=== PATIENT | male | born 1945 | race Caucasian/White ===

== ENCOUNTER 2016-12-18 06:39 | Inpatient (IN) | payer MEDICARE ==
[2016-12-18] MEDS ORDERED: ONDANSETRON HCL 4 MG/2 ML VIAL ONE (07:05)
[2016-12-18] MEDS ORDERED: HYDROmorphone HCL 1 MG/ML SYR ONE (07:05)
[2016-12-18 07:15] LABS: BASOPHILS 0.1 % (0.0-2.0); HEMATOCRIT 45.9 % (42.0-54.0); HEMOGLOBIN 15.8 g/dL (14.0-18.0); LYMPHOCYTES# 0.8 X 10^3uL (0.8-3.8); MEAN CELL VOLUME 96.2 fL (84.0-102.0); MEAN CORPUS. HGB CONCENTRATION 34.3 g/dL (32.0-36.0); MEAN PLATELET VOLUME 8.7 fL (7.4-10.4); MONOCYTES 13.2 % (2.0-10.0); MONOCYTES# 1.2 X 10^3uL (0.2-1.0); NEUTROPHILS 77.7 % (54.0-75.0); NEUTROPHILS# 7.3 X 10^3uL (2.6-6.7); RED BLOOD COUNT 4.77 X 10^6uL (4.20-6.10); RED CELL DISTRIBUTION WIDTH 12.4 % (11.5-14.5); WHITE BLOOD COUNT 9.3 X 10^3uL (3.9-10.7)
[2016-12-18 07:26] LABS: A/G RATIO 1.4; ALBUMIN 4.2 g/dL (3.5-5.0); BILIRUBIN, TOTAL 2.1 mg/dL (0.2-1.3); CALCIUM 9.3 mg/dL (8.4-10.2); CREATININE 1.3 mg/dL (0.7-1.3); TOTAL PROTEIN 7.1 g/dL (6.3-8.2)
--- NOTE | 2016-12-18 08:25 | CT REPORT ---
EXAM: CT abdomen and pelvis. DATE: December 18, 2016. INDICATION: Nausea and vomiting for 5 days. PAST medical history: Colon cancer status post resection, renal carcinoma status post resection, pros adkins cancer, bladder cancer. TECHNIQUE: CT the abdomen and pelvis was performed after the uneventful administration of 100 mL of I sovue-300. FINDINGS: Lung bases are hypoventilated. No confluent infiltrate. No pneumothorax or pleural effusion. There is a small amount of perihepatic ascites. The liver appears unremarkable. The gallbladder demon strates no stones or evidence of cholecystitis. The biliary ducts are not dilated. The spleen is unre markable. There are no adrenal masses. The right kidney is surgically absent. The left kidney enhances normally . Incidental note is made of a subcentimeter metallic foreign body within the parenchyma of the mid b donn. There is normal contrast excretion. The abdominal aorta and IVC are unremarkable. No aneurysm. No periaortic mass or adenopathy. Stomach is distended and predominantly fluid-filled. There is diffuse small bowel distention which is fluid-filled and multiple air-fluid levels. Colon is decompressed. The transition point appears to b e in the right midabdomen in the region of the small bowel to colon surgical anastomosis. The ascendi ng colon and cecum are absent consistent with surgical resection. No free air or pneumatosis. There i s diverticulosis of the sigmoid colon without inflammatory combination. Pelvis demonstrates no free fluid. Prostate is not visualized. Postoperative changes are noted at the base of the bladder and prostate bed. The unenhanced bladder appears grossly unremarkable. No pelvic adenopathy. There are two subcentimeter nonspecific sclerotic foci one in the posterior aspect of th e right iliac wing second located in the posterior cortex of the right iliac wing. IMPRESSION: 1. Distal small bowel obstruction. Transition point appears to be in the right mid abdomen near the s mall bowel to colon anastomosis. 2. Postoperative changes of resection of the cecum and ascending colon. 3. Postoperative changes of right nephro ectomy. 4. Postoperative changes of pelvic surgery at the base of the bladder and prostate. 5. Small amount of perihepatic ascites. 6. There are 2 subcentimeter nonspecific sclerotic foci in the right iliac wing. Preliminary findings regarding small bowel obstruction reviewed with Dr. Burns at 8:20 AM Final Electronic Signature: This report was electronically signed by Freddy Hills MD on 12/18/2016 8: 23 AM. [email or web address] /
[2016-12-18] MEDS ORDERED: LIDOCAINE VISCOUS 2% 15 ML UDC ONE (08:29)
[2016-12-18] MEDS ORDERED: MIDAZOLAM HCL 2 MG/2 ML VIAL ONE (08:43)
[2016-12-18] MEDS ORDERED: HOME MEDICATION LIST NEEDED 1 EA EACH MC ONE (09:33)
[2016-12-18] MEDS ORDERED: HYDROmorphone HCL 1 MG/ML SYR IV PRN (09:42)
--- NOTE | 2016-12-18 09:58 | ER PHYSICIAN DOCUMENTATION ---
Physician Documentation [facility] Name:Freddy Hdz Jr Age:71 yrs Sex:Male :1945 Arrival Date:12/18/2016 Time:06:39 Bed4 Private MD:Mario Alberto Mcdowell ED, Tom Disposition: 12/18 09:49 Chart complete. tl1 Disposition: 12/18/16 08:53 Admit ordered for Fritz Chavez. Preliminary diagnosis is Bowel Obstruction. - Bed requested for Medical/Surgical. - Condition is Improved. - Problem is new. - Symptoms have improved. 23 HR OBS Yes HPI: 07:08 This 71 yrs old Male presents to ER via Walk In with complaints of tl1 Nausea/Vomiting. 09:33 Upper abdominal pain came on quickly after dinner 4 nights ago, which became severe, tl1 and has been waxing and waning ever since. He has vomited on 2 occasions. Subjectively had a fever and chills early this morning. He has not had a BM in 4 days and has minimal appetite. Last ate about 15 hours ago (fruit and juice). . Historical: - Allergies: No known drug Allergies; - PMHx: Cancer; - PSHx: prostate; colon; nephrectomy; - Tetanus: < 10 years. - Ebola Screening: : Patient negative for fever greater than or equal to 101.5 degrees Fahrenheit, and additional compatible Ebola Virus Disease symptoms. Patient denies exposure to infectious person. Patient denies travel to an Ebola-affected area in the 21 days before illness onset. No symptoms or risks identified at this time. . - Immunization history: Pneumococcal vaccine is up to date, Flu Vaccine < 1 year. ROS: 09:42 Constitutional: Positive for chills, fatigue, fever, malaise. tl1 09:42 Abdomen/GI: Positive for abdominal pain, nausea, vomiting, constipation, anorexia, Negative for black/tarry stool, rectal bleeding, bowel incontinence, flatulence. 09:42 All other systems are negative. Exam: 09:43 Constitutional: This is a well developed, well nourished patient who is awake, alert, tl1 and in no acute distress. Head/Face: Normocephalic, atraumatic. Eyes: Pupils equal round and reactive to light, extra-ocular motions intact. Lids and lashes normal. Conjunctiva and sclera are non-icteric and not injected. Cornea within normal limits. Periorbital areas with no swelling, redness, or edema. ENT: Nares patent. No nasal discharge, no septal abnormalities noted. Tympanic membranes are normal and external auditory canals are clear. Oropharynx with no redness, swelling, or masses, exudates, or evidence of obstruction, uvula midline. Mucous membranes moist. 09:43 Neck: Trachea midline, no thyromegaly or masses palpated, and no cervical tl1 lymphadenopathy. Supple, full range of motion without nuchal rigidity, or vertebral point tenderness. No Meningismus. 09:43 Cardiovascular: Rate: normal, Rhythm: regular, Pulses: no pulse deficits are appreciated, Heart sounds: normal, Edema: is not appreciated, JVD: is not appreciated. 09:43 Respiratory: Respirations: normal, Breath sounds: are normal. 09:43 Abdomen/GI: Inspection: abdomen appears normal, Bowel sounds: diminished, Palpation: soft, moderate abdominal tenderness, in the right upper quadrant and left upper quadrant. 09:43 Musculoskeletal/extremity: Exam is negative for acute changes. 09:43 Skin: Exam negative for acute changes. 09:43 Neuro: Exam negative for acute changes. Vital Signs: 06:45 BP 143 / 86; Pulse 66; Resp 14; Temp 98.4; Pulse Ox 95% on R/A; Weight 66.68 kg; Height em1 5 ft. 7 in. (170.18 cm); Pain 6/10; 07:31 Pain 4/10; st 08:13 BP 114 / 70; Pulse 59; Pulse Ox 99% ; st 08:30 BP 116 / 75; Pulse 58; Pulse Ox 99% ; st 09:00 BP 118 / 75; Pulse 60; Pulse Ox 96% ; st 09:30 BP 122 / 79; Pulse 58; Pain 3/10; st 06:45 Body Mass Index 23.02 (66.68 kg, 170.18 cm) em1 Procedures: 09:44 Performed NG placement by SAGE Garcia. tl1 MDM: 07:08 Patient medically screened. tl1 09:47 Differential diagnosis: Nonspecific abd pain, gastritis, cholecystitis, pancreatitis, tl1 diverticulitis, BOWEL OBSTRUCTION. Data reviewed: vital signs, nurses notes, old medical records, lab test result(s), cardiac enzymes, CBC, electrolytes, hepatic panel, urinalysis, radiologic studies, CT scan, and as a result, I will admit patient. Data interpreted: bottom presser: Pulse oximetry:. Counseling: I had a detailed discussion with the patient and/or guardian regarding: the historical points, exam findings, and any diagnostic results supporting the discharge/admit diagnosis, lab results, radiology results, the need for further work-up and treatment in the hospital. Medication response: The patient's symptoms have improved. Response to treatment: the patient's symptoms have mildly improved after treatment, and as a result, I will admit patient. Physician consultation: Fritz Chavez MD was called at 08:30, was contacted at 09:00, regarding patient's condition, need to come to ED to see patient, and will see patient in ED, shortly. 12/18 07:30 Order name: CBC AUTO DIF, MDIF/RMOR IF IND; Complete Time: 08:15 EDMS 12/18 08:12 Interpretation: WHITE BLOOD COUNT 9.3; HEMOGLOBIN 15.8; HEMATOCRIT 45.9; PLATELET COUNT tl1 201; NEUTROPHILS 77.7; LYMPHOCYTES 9.0; MONOCYTES 13.2. 12/18 07:31 Order name: COMPREHENSIVE METABOLIC PANEL; Complete Time: 08:15 EDMS 12/18 08:12 Interpretation: SODIUM 137; POTASSIUM 4.0; CHLORIDE 96; CARBON DIOXIDE 32; GLUCOSE 137; tl1 BLOOD UREA NITROGEN 26; CREATININE 1.3; BILIRUBIN, TOTAL 2.1. 12/18 07:31 Order name: LIPASE; Complete Time: 08:15 EDMS 12/18 08:13 Interpretation: Normal: LIPASE 49. tl1 12/18 08:25 Order name: CAT SCAN; ABD/PEL W [id number] EDMS 12/18 06:54 Order name: Iv Saline Lock; Complete Time: 07:06 lb 12/18 07:14 Order name: Oxygen; Complete Time: 07:14 st 12/18 08:15 Order name: NG Tube; Complete Time: 08:49 tl1 Dispensed Medications: 07:06 Drug: Dilaudid 0.5 mg; Route: IVP; Site: left antecubital; lb 07:31 Follow up: Response: Pain is decreased st 07:06 Drug: Zofran 4 mg; Route: IVP; Infused Over: 2 mins; Site: left antecubital; lb 07:31 Follow up: Response: Nausea is decreased st 07:31 Drug: NS 0.9% 1000 ml; Route: IV; Rate: bolus; Site: left antecubital; st 09:38 Follow up: IV Status: Completed infusion; IV Intake: 1000ml st 08:49 Drug: Versed 2 mg; Route: IVP; Site: left antecubital; st 09:55 Follow up: Response: No adverse reaction st 08:49 Drug: Lidocaine Viscous Gel 2 % 20 ml; Route: Mucous Membrane; st Signatures: Radha Garza RN RN st Leigh, Tom, MD MD tl1 Jessica Alejandro
--- NOTE | 2016-12-18 09:58 | ER NURSING DOCUMENTATION ---
Nurse's Notes [facility] Name:Freddy Hdz Jr Age:71 yrs Sex:Male :1945 Arrival Date:12/18/2016 Time:06:39 Bed4 Private MD:Mario Alberto Mcdowell Diagnosis:Bowel Obstruction Presentation: 12/18 06:49 Presenting complaint: Patient states: chills, fever, nausea since last Friday (5 lb days) limited oral intake. Transition of care: Home. Notified ED Physician of Dr. Burns notified. 06:49 Acuity: GOLDIE 3 lb 06:49 Method Of Arrival: Walk In lb Triage Assessment: 07:12 General: Appears in no apparent distress, Behavior is cooperative. Pain: Complains of st pain in abdomen Pain currently is 7 out of 10 on a pain scale. Pain began five days ago. Cardiovascular: No deficits noted. Respiratory: No deficits noted. GI: Abdomen is distended, Abd is soft X 4 quads Abdomen is tender to palpation in right upper quadrant Reports nausea, vomiting, no BM for five days. pt has also had very limited in take for five days with no apatite. Historical: - Allergies: No known drug Allergies; - PMHx: Cancer; - PSHx: prostate; colon; nephrectomy; - Tetanus: < 10 years. - Ebola Screening: : Patient negative for fever greater than or equal to 101.5 degrees Fahrenheit, and additional compatible Ebola Virus Disease symptoms. Patient denies exposure to infectious person. Patient denies travel to an Ebola-affected area in the 21 days before illness onset. No symptoms or risks identified at this time. . - Immunization history: Pneumococcal vaccine is up to date, Flu Vaccine < 1 year. Screenin:07 Infectious Disease Risk None. Abuse screen: Denies threats or abuse. Denies injuries lb from another. Nutritional screening: No deficits noted. Assessment: 07:06 See Triage Assessment done by same RN. Pain: Complains of pain in abdomen Pain does not lb radiate. Pain currently is 6 out of 10 on a pain scale. 08:50 General: pt tolerated the NG tube well pt is drowsy after versed. . st Vital Signs: 06:45 BP 143 / 86; Pulse 66; Resp 14; Temp 98.4; Pulse Ox 95% on R/A; Weight 66.68 kg; Height em1 5 ft. 7 in. (170.18 cm); Pain 6/10; 07:31 Pain 4/10; st 08:13 BP 114 / 70; Pulse 59; Pulse Ox 99% ; st 08:30 BP 116 / 75; Pulse 58; Pulse Ox 99% ; st 09:00 BP 118 / 75; Pulse 60; Pulse Ox 96% ; st 09:30 BP 122 / 79; Pulse 58; Pain 3/10; st 06:45 Body Mass Index 23.02 (66.68 kg, 170.18 cm) em1 ED Course: 06:40 Patient arrived in ED. em2 06:40 Mario Alberto Mcdowell MD is Private Physician. em2 06:50 Triage completed. lb 07:06 Radha Garza, RN is Primary Nurse. st 07:07 Valuables Remains with patient Patient has correct armband on for positive lb identification. Placed in gown. Bed in low position. Call light in reach. Side rails up X 1. 07:07 Inserted peripheral IV: 20 gauge in left antecubital area and blood collected. lb 07:08 Leobardo Burns MD is Attending Physician. tl1 07:14 Oxygen Oxygen administration via nasal cannula @ 2L/min. st 07:[address] ms 08:17 Patient moved back from CT. pm1 08:49 NGT inserted 18 Fr. via left nare. Placement verified. Returned gastric contents. to st intermittent suction. Returned gastric contents. Oxygen Oxygen administration via nasal cannula @ 4L/min. 08:52 Fritz Chavez MD is Admitting Physician. tl1 09:21 Dr. Chavez at bedside. st 09:36 Oxygen Oxygen administration via nasal cannula @ 2L/min. st Administered Medications: 07:06 Drug: Dilaudid 0.5 mg; Route: IVP; Site: left antecubital; lb 07:31 Follow up: Response: Pain is decreased st 07:06 Drug: Zofran 4 mg; Route: IVP; Infused Over: 2 mins; Site: left antecubital; lb 07:31 Follow up: Response: Nausea is decreased st 07:31 Drug: NS 0.9% 1000 ml; Route: IV; Rate: bolus; Site: left antecubital; st 09:38 Follow up: IV Status: Completed infusion; IV Intake: 1000ml st 08:49 Drug: Versed 2 mg; Route: IVP; Site: left antecubital; st 09:55 Follow up: Response: No adverse reaction st 08:49 Drug: Lidocaine Viscous Gel 2 % 20 ml; Route: Mucous Membrane; st Intake: 09:38 IV: 1000ml; Total: 1000ml. st Output: 09:30 Gastric: 350ml (NGT); Total: 350ml. st 09:37 Gastric: 400ml (NGT); Total: 750ml. st Outcome: 08:53 Decision to Admit by Provider. tl1 09:52 Admitted to Med/surg accompanied by nurse, via stretcher. st 09:52 Condition: stable 09:52 Discharge instructions given to patient, Instructed on need to admit 09:58 Patient [address] the ED. st Signatures: Radha Garza RN RN Sona Shelby ms, Philisha pm1 Meinking-tech, Jenelle-tech em1 Meinking-reg, Jenelle-reg em2 Leobardo Burns MD MD tl1 Jessica Alejandro
[2016-12-18] MEDS: ACETAMINOPHEN 1,000 MG/100 ML VIAL IV SCH ×4 (10:54→21:18)
[2016-12-18] MEDS: POTASSIUM CHLORIDE/0.45% NACL 1,000 ML IV SCH ×2 (10:54→18:08)
[2016-12-18] MEDS ORDERED: PHENOL SPRAY 1 SPRAY/ML BTL MUCOUS MEM SCH (12:00)
[2016-12-18] MEDS: ENOXAPARIN SODIUM 40 MG/0.4 ML SYR SUBCUT SCH (12:38)
--- NOTE | 2016-12-18 14:31 | RADIOLOGY REPORT ---
REASON FOR EXAMINATION: Evaluate nasogastric tube placement. Views of the abdomen demonstrate the distal tip of the nasogastric tube projecting in the expected region of the body of the stomach. Residual contrast from CT scan is noted. Bowel gas pattern is consistent with a small bowel obstruction. Post surgical changes in the right abdomen are noted. IMPRESSION: Tip of the nasogastric tube projects in the expected region of the body of the stomach. MTDD
[2016-12-18] MEDS: ONDANSETRON HCL 4 MG/2 ML VIAL IV PRN (21:07)
[2016-12-19] MEDS: POTASSIUM CHLORIDE/0.45% NACL 1,000 ML IV SCH ×3 (00:48→22:16)
[2016-12-19] MEDS: ACETAMINOPHEN 1,000 MG/100 ML VIAL IV SCH ×5 (01:49→22:16)
[2016-12-19 06:00] LABS: BASOPHILS 0.1 % (0.0-2.0); EOSINOPHILS 0.2 % (0.0-6.0); HEMATOCRIT 45.7 % (42.0-54.0); HEMOGLOBIN 15.4 g/dL (14.0-18.0); LYMPHOCYTES 14.1 % (20.0-40.0); LYMPHOCYTES# 0.7 X 10^3uL (0.8-3.8); MEAN CELL VOLUME 97.4 fL (84.0-102.0); MEAN CORPUS. HGB CONCENTRATION 33.7 g/dL (32.0-36.0); MEAN CORPUSCULAR HEMOGLOBIN 32.8 pg (29.0-35.0); MEAN PLATELET VOLUME 9.6 fL (7.4-10.4); MONOCYTES# 0.9 X 10^3uL (0.2-1.0); NEUTROPHILS 66.7 % (54.0-75.0); NEUTROPHILS# 3.2 X 10^3uL (2.6-6.7); PLATELET COUNT 185 X 10^3uL (130-440); WHITE BLOOD COUNT 4.8 X 10^3uL (3.9-10.7)
[2016-12-19 06:05] LABS: ALBUMIN 3.7 g/dL (3.5-5.0); ALKALINE PHOSPHATASE 68 U/L (38-126); ALT 36 U/L (21-72); AST 29 U/L (17-59); BILIRUBIN, DIRECT 0.6 mg/dL (0.0-0.4); BILIRUBIN, TOTAL 1.7 mg/dL (0.2-1.3); BLOOD UREA NITROGEN 25 mg/dL (9-20); CALCIUM 8.2 mg/dL (8.4-10.2); CHLORIDE 98 mmol/L (98-107); CREATININE 1.2 mg/dL (0.7-1.3); EST GLOMERULAR FILTRATION RATE > 60 mL/min; GLUCOSE 101 mg/dL (70-100); MAGNESIUM 2.5 mg/dL (1.6-2.3); POTASSIUM 3.9 mmol/L (3.5-5.1); SODIUM 134 mmol/L (137-145); TOTAL PROTEIN 6.5 g/dL (6.3-8.2)
[2016-12-19 06:18] LABS: MONOCYTES 18.9 % (2.0-10.0)
--- NOTE | 2016-12-19 09:15 | PROGRESS NOTE:General Surgery ---
Assessment and Plan - Date of Encounter Date of Encounter: 12/19/16 (1) Small bowel obstruction Status: Acute Assessment and plan: He put out a moderate amount from his NGT yesterday. He has a few bowel sounds but has passed no flatus. His labs are stable so he does not have signs of ischemic intestine. Will obtain a gastrograffin study. Current Visit: Yes - Time Spent With Patient Total time spent with greater than 50% in coordination of care (as documented) at patient's floor/unit and/or counseling patient: SILVIO: Gen Surg PN Subjective Patient reports: afebrile, feels better, no new complaints, no bowel movement, no fever, no flatus, no nausea SILVIO: Gen Surgery PN Obj Exam - Latest Vital Signs and I&O Latest Vital Signs/I&O: Vital Signs Temp 36.6 C 12/19/16 06:38 Pulse 67 12/19/16 06:38 Resp 14 12/19/16 06:38 BP 118/72 12/19/16 06:38 Pulse Ox 96 12/19/16 06:38 Intake & Output 12/18/16 12/19/16 12/19/16 17:59 05:59 17:59 Intake Total 1000 4009 Output Total 700 1375 265 Balance 300 2634 -265 Weight 91.626 kg Intake: IV 1000 4009 LEFT FOREARM 1000 4009 Oral 0 Output: Gastric Drainage 700 700 265 Left Nare 700 Urine 675 Other: Urine Appearance Clear Urine Color Yellow Voiding Method Toilet - Exam General physical exam: no distress Respiratory exam: clear to auscultation Abdomen exam: bowel sounds (hypoactive), distended (improved from yesterday), other (no rigidity or guarding.) - Lab Labs: Laboratory Last Values WBC 4.8 X 10^3uL (3.9-10.7) 12/19/16 05:00 RBC 4.70 X 10^6uL (4.20-6.10) 12/19/16 05:00 Hgb 15.4 g/dL (14.0-18.0) 12/19/16 05:00 Hct 45.7 % (42.0-54.0) 12/19/16 05:00 MCV 97.4 fL (84.0-102.0) 12/19/16 05:00 MCH 32.8 pg (29.0-35.0) 12/19/16 05:00 MCHC 33.7 g/dL (32.0-36.0) 12/19/16 05:00 RDW 12.0 % (11.5-14.5) 12/19/16 05:00 Plt Count 185 X 10^3uL (130-440) 12/19/16 05:00 MPV 9.6 fL (7.4-10.4) 12/19/16 05:00 Neutrophils % 66.7 % (54.0-75.0) 12/19/16 05:00 Lymphocytes % 14.1 % (20.0-40.0) L 12/19/16 05:00 Eosinophils % 0.2 % (0.0-6.0) 12/19/16 05:00 Basophils % 0.1 % (0.0-2.0) 12/19/16 05:00 Neutrophils # 3.2 X 10^3uL (2.6-6.7) 12/19/16 05:00 Lymphocytes # 0.7 X 10^3uL (0.8-3.8) L 12/19/16 05:00 Monocytes 18.9 % (2.0-10.0) H 12/19/16 05:00 Monocytes # 0.9 X 10^3uL (0.2-1.0) 12/19/16 05:00 Eosinophils # 0.0 X 10^3uL (0.0-0.4) 12/19/16 05:00 Basophils # 0.0 X 10^3uL (0.0-0.1) 12/19/16 05:00 Sodium 134 mmol/L (137-145) L 12/19/16 05:00 Potassium 3.9 mmol/L (3.5-5.1) 12/19/16 05:00 Chloride 98 mmol/L (98-107) 12/19/16 05:00 Carbon Dioxide 28 mmol/L (22-30) 12/19/16 05:00 BUN 25 mg/dL (9-20) H 12/19/16 05:00 Creatinine 1.2 mg/dL (0.7-1.3) 12/19/16 05:00 GFR Calculation > 60 mL/min 12/19/16 05:00 Glucose 101 mg/dL (70-100) H 12/19/16 05:00 Lactic Acid 0.8 mmol/L (0.7-2.1) 12/19/16 05:27 Calcium 8.2 mg/dL (8.4-10.2) L 12/19/16 05:00 Magnesium 2.5 mg/dL (1.6-2.3) H 12/19/16 05:00 Total Bilirubin 1.7 mg/dL (0.2-1.3) H 12/19/16 05:00 Direct Bilirubin 0.6 mg/dL (0.0-0.4) H 12/19/16 05:00 AST 29 U/L (17-59) 12/19/16 05:00 ALT 36 U/L (21-72) 12/19/16 05:00 Alkaline Phosphatase 68 U/L (38-126) 12/19/16 05:00 Total Protein 6.5 g/dL (6.3-8.2) 12/19/16 05:00 Albumin 3.7 g/dL (3.5-5.0) 12/19/16 05:00 Albumin/Globulin Ratio 1.4 12/18/16 07:00 Lipase 49 U/L (23-300) 12/18/16 07:00 Quality Questions - VTE Prophylaxis Assessment VTE Present on Admission?: No Patient at risk for venous thromboembolism?: Yes VTE Risk Level: Moderate Risk VTE Medical Contraindication: N/A-VTE Prophylaxis ordered
[2016-12-19] MEDS: ENOXAPARIN SODIUM 40 MG/0.4 ML SYR SUBCUT SCH (10:17)
[2016-12-19] MEDS ORDERED: NORMAL SALINE 250 ML IV ONE (16:23)
[2016-12-19] MEDS ORDERED: ZOLPIDEM TARTRATE 5 MG TABLET PO PRN (17:29)
[2016-12-19] MEDS ORDERED: HYDROmorphone HCL 2 MG TABLET PO PRN (17:30)
[2016-12-19] MEDS: POLYETHYLENE GLYCOL 3350 17 GM POWD.PACK PO SCH (20:47)
[2016-12-20] MEDS: ACETAMINOPHEN 1,000 MG/100 ML VIAL IV SCH (03:51)
[2016-12-20 05:45] LABS: A/G RATIO 1.4; ALBUMIN 3.3 g/dL (3.5-5.0); ALKALINE PHOSPHATASE 55 U/L (38-126); ALT 34 U/L (21-72); AST 22 U/L (17-59); BLOOD UREA NITROGEN 27 mg/dL (9-20); CALCIUM 7.8 mg/dL (8.4-10.2); CHLORIDE 100 mmol/L (98-107); CREATININE 1.2 mg/dL (0.7-1.3); EST GLOMERULAR FILTRATION RATE > 60 mL/min; GLUCOSE 88 mg/dL (70-100); MAGNESIUM 2.6 mg/dL (1.6-2.3); POTASSIUM 4.1 mmol/L (3.5-5.1); SODIUM 134 mmol/L (137-145); TOTAL PROTEIN 5.7 g/dL (6.3-8.2)
[2016-12-20 05:51] LABS: HEMATOCRIT 40.2 % (42.0-54.0); HEMOGLOBIN 13.7 g/dL (14.0-18.0); MEAN CELL VOLUME 97.3 fL (84.0-102.0); MEAN CORPUSCULAR HEMOGLOBIN 33.1 pg (29.0-35.0); MEAN PLATELET VOLUME 9.6 fL (7.4-10.4); PLATELET COUNT 167 X 10^3uL (130-440); RED BLOOD COUNT 4.13 X 10^6uL (4.20-6.10); RED CELL DISTRIBUTION WIDTH 12.3 % (11.5-14.5); WHITE BLOOD COUNT 4.7 X 10^3uL (3.9-10.7)
--- NOTE | 2016-12-20 08:40 | RADIOLOGY REPORT ---
EXAM:SMALL INT; MUTI FILMS [id number] INDICATION: Small bowel obstruction COMPARISON:CT abdomen and pelvis and abdominal radiograph dated 12/18/2016. TECHNIQUE:After administration of 80 mL Gastrografin through a nasogastric tube into the stomach, seq uential abdominal radiographs were obtained. 7 total radiographs were acquired. FINDINGS: The small lot operator image shows dilated small bowel in the midline and left abdomen. Multiple surgica l clips are present in the right upper abdomen and in the pelvis. There is a suture line in the mid r ight abdomen. There is prompt opacification of the stomach. There is also prompt emptying of contrast material into the proximal small bowel. There is moderate dilatation of the small bowel in the mid and left abdome n, similar in appearance to the prior CT. Contrast material does not reach the colon at approximately 5 hours into the procedure. An image obtained approximately 22 hours after beginning the procedure s hows contrast material throughout the colon. IMPRESSION:Persistent small bowel obstruction, with the dilated small bowel loops in the midline and left abdomen. Contrast does not reach the colon at 5 hours and to the procedure. Contrast is present throughout the colon at approximately 22 hours. The transition point is difficult to visualize, due t o the dilute nature of the Gastrografin. Final Electronic Signature: This report was electronically signed by Justin Villar MD on 12/20/2016 8:37 AM. [email or web address] /
[2016-12-20] MEDS: POTASSIUM CHLORIDE/0.45% NACL 1,000 ML IV SCH ×3 (08:56→21:46)
[2016-12-20] MEDS ORDERED: ACETAMINOPHEN 1,000 MG/100 ML VIAL IV PRN (08:57)
--- NOTE | 2016-12-20 09:02 | PROGRESS NOTE:General Surgery ---
Assessment and Plan - Date of Encounter Date of Encounter: 12/20/16 (1) Small bowel obstruction Status: Acute Assessment and plan: Gastrograffin is seen in the colon this morning. He is still distended and put out about 1700 ml of NGT output last night after hooking back up the NGT. Will continue NGT today and hopefully be able to wean that off tomorrow. Thus far labs have looked okay. Urine output was 800-900 yesterday so will continue to monitor this. Current Visit: Yes - Time Spent With Patient Total time spent with greater than 50% in coordination of care (as documented) at patient's floor/unit and/or counseling patient: SILVIO: Gen Surg PN Subjective Patient reports: afebrile, bowel movement, feels better, no new complaints, no fever, no flatus, no nausea SILVIO: Gen Surgery PN Obj Exam - Latest Vital Signs and I&O Latest Vital Signs/I&O: Vital Signs Temp 36.5 C 12/20/16 07:00 Pulse 68 12/20/16 07:00 Resp 20 12/20/16 07:00 BP 115/81 12/20/16 07:00 Pulse Ox 90 12/20/16 07:00 Intake & Output 12/19/16 12/20/16 12/20/16 17:59 05:59 17:59 Intake Total 3749 Output Total 465 600 100 Balance -465 -600 3649 Intake: IV 3749 LEFT FOREARM 3749 Output: Gastric Drainage 465 600 Left Nare 200 600 Urine 100 Other: Urine Appearance Clear Clear Clear Urine Color Yellow Yellow Yellow Stool Size Small Stool Characteristics Liquid Voiding Method Toilet Toilet Toilet # Voids 1 # Bowel Movements 1 - Exam Respiratory exam: clear to auscultation Abdomen exam: bowel sounds (hypoactive), distended (still fairly distended), other (no rigidity or guarding.) - Lab Labs: Laboratory Last Values WBC 4.7 X 10^3uL (3.9-10.7) 12/20/16 05:15 RBC 4.13 X 10^6uL (4.20-6.10) L 12/20/16 05:15 Hgb 13.7 g/dL (14.0-18.0) L 12/20/16 05:15 Hct 40.2 % (42.0-54.0) L 12/20/16 05:15 MCV 97.3 fL (84.0-102.0) 12/20/16 05:15 MCH 33.1 pg (29.0-35.0) 12/20/16 05:15 MCHC 34.0 g/dL (32.0-36.0) 12/20/16 05:15 RDW 12.3 % (11.5-14.5) 12/20/16 05:15 Plt Count 167 X 10^3uL (130-440) 12/20/16 05:15 MPV 9.6 fL (7.4-10.4) 12/20/16 05:15 Neutrophils % 66.7 % (54.0-75.0) 12/19/16 05:00 Lymphocytes % 14.1 % (20.0-40.0) L 12/19/16 05:00 Eosinophils % 0.2 % (0.0-6.0) 12/19/16 05:00 Basophils % 0.1 % (0.0-2.0) 12/19/16 05:00 Neutrophils # 3.2 X 10^3uL (2.6-6.7) 12/19/16 05:00 Lymphocytes # 0.7 X 10^3uL (0.8-3.8) L 12/19/16 05:00 Monocytes 18.9 % (2.0-10.0) H 12/19/16 05:00 Monocytes # 0.9 X 10^3uL (0.2-1.0) 12/19/16 05:00 Eosinophils # 0.0 X 10^3uL (0.0-0.4) 12/19/16 05:00 Basophils # 0.0 X 10^3uL (0.0-0.1) 12/19/16 05:00 Sodium 134 mmol/L (137-145) L 12/20/16 05:15 Potassium 4.1 mmol/L (3.5-5.1) 12/20/16 05:15 Chloride 100 mmol/L (98-107) 12/20/16 05:15 Carbon Dioxide 27 mmol/L (22-30) 12/20/16 05:15 BUN 27 mg/dL (9-20) H 12/20/16 05:15 Creatinine 1.2 mg/dL (0.7-1.3) 12/20/16 05:15 GFR Calculation > 60 mL/min 12/20/16 05:15 Glucose 88 mg/dL (70-100) 12/20/16 05:15 Lactic Acid 0.8 mmol/L (0.7-2.1) 12/19/16 05:27 Calcium 7.8 mg/dL (8.4-10.2) L 12/20/16 05:15 Magnesium 2.6 mg/dL (1.6-2.3) H 12/20/16 05:15 Total Bilirubin 1.0 mg/dL (0.2-1.3) 12/20/16 05:15 Direct Bilirubin 0.6 mg/dL (0.0-0.4) H 12/19/16 05:00 AST 22 U/L (17-59) 12/20/16 05:15 ALT 34 U/L (21-72) 12/20/16 05:15 Alkaline Phosphatase 55 U/L (38-126) 12/20/16 05:15 Total Protein 5.7 g/dL (6.3-8.2) L 12/20/16 05:15 Albumin 3.3 g/dL (3.5-5.0) L 12/20/16 05:15 Albumin/Globulin Ratio 1.4 12/20/16 05:15 Lipase 49 U/L (23-300) 12/18/16 07:00
[2016-12-20] MEDS: ENOXAPARIN SODIUM 40 MG/0.4 ML SYR SUBCUT SCH (09:09)
[2016-12-20] MEDS: POLYETHYLENE GLYCOL 3350 17 GM POWD.PACK PO SCH ×3 (09:10→22:20)
[2016-12-21] MEDS: POTASSIUM CHLORIDE/0.45% NACL 1,000 ML IV SCH (04:10)
[2016-12-21 06:27] LABS: HEMATOCRIT 39.6 % (42.0-54.0); HEMOGLOBIN 12.9 g/dL (14.0-18.0); MEAN CELL VOLUME 97.6 fL (84.0-102.0); MEAN CORPUS. HGB CONCENTRATION 32.5 g/dL (32.0-36.0); MEAN CORPUSCULAR HEMOGLOBIN 31.7 pg (29.0-35.0); MEAN PLATELET VOLUME 8.5 fL (7.4-10.4); PLATELET COUNT 189 X 10^3uL (130-440); RED BLOOD COUNT 4.05 X 10^6uL (4.20-6.10); RED CELL DISTRIBUTION WIDTH 12.4 % (11.5-14.5); WHITE BLOOD COUNT 4.9 X 10^3uL (3.9-10.7)
[2016-12-21 06:49] LABS: BLOOD UREA NITROGEN 19 mg/dL (9-20); CALCIUM 7.6 mg/dL (8.4-10.2); CHLORIDE 103 mmol/L (98-107); EST GLOMERULAR FILTRATION RATE > 60 mL/min; GLUCOSE 77 mg/dL (70-100); MAGNESIUM 2.4 mg/dL (1.6-2.3); POTASSIUM 4.6 mmol/L (3.5-5.1); SODIUM 133 mmol/L (137-145)
[2016-12-21] MEDS: POLYETHYLENE GLYCOL 3350 17 GM POWD.PACK PO SCH ×2 (10:27→21:53)
--- NOTE | 2016-12-21 10:27 | PROGRESS NOTE:General Surgery ---
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 Clinically resolving now with several bowel movements, decreasing NGT output, decreasing distention and no pain. Plan: Clamp NGT, allow liquid diet, replace sodium for mild hyponatremia. Possible DC NGT if progressing. (1) Small bowel obstruction Status: Acute Current Visit: Yes - Time Spent With Patient Total time spent with greater than 50% in coordination of care (as documented) at patient's floor/unit and/or counseling patient: less than 15 minutes SILVIO: Gen Surg PN Subjective Patient reports: afebrile, bowel movement (4-5 loose bowel movements), diarrhea , feels better, no new complaints, pain is less, no fever, no flatus, no nausea SILVIO: Gen Surgery PN Obj Exam - Latest Vital Signs and I&O Latest Vital Signs/I&O: Vital Signs Temp 36.9 C 12/21/16 06:47 Pulse 97 H 12/21/16 06:47 Resp 19 12/21/16 08:45 BP 136/76 12/21/16 06:47 Pulse Ox 95 12/21/16 08:45 Intake & Output 12/20/16 12/21/16 12/21/16 17:59 05:59 17:59 Intake Total 3749 Output Total 100 1750 400 Balance 3649 -1750 -400 Intake: IV 3749 LEFT FOREARM 3749 Output: Gastric Drainage 550 400 Left Nare 550 400 Urine 100 1200 Other: Urine Appearance Clear Clear Clear Urine Color Yellow Yellow Yellow Stool Size Small Moderate Moderate Stool Characteristics Liquid Soft Soft Liquid Liquid Brown Brown Voiding Method Toilet Toilet Toilet # Voids 1 # Bowel Movements 1 1 - Exam Respiratory exam: clear to auscultation Abdomen exam: bowel sounds (hypoactive), distended (less distended), other (no rigidity or guarding.) - Lab Labs: Laboratory Last Values WBC 4.9 X 10^3uL (3.9-10.7) 12/21/16 06:15 RBC 4.05 X 10^6uL (4.20-6.10) L 12/21/16 06:15 Hgb 12.9 g/dL (14.0-18.0) L 12/21/16 06:15 Hct 39.6 % (42.0-54.0) L 12/21/16 06:15 MCV 97.6 fL (84.0-102.0) 12/21/16 06:15 MCH 31.7 pg (29.0-35.0) 12/21/16 06:15 MCHC 32.5 g/dL (32.0-36.0) 12/21/16 06:15 RDW 12.4 % (11.5-14.5) 12/21/16 06:15 Plt Count 189 X 10^3uL (130-440) 12/21/16 06:15 MPV 8.5 fL (7.4-10.4) 12/21/16 06:15 Neutrophils % 66.7 % (54.0-75.0) 12/19/16 05:00 Lymphocytes % 14.1 % (20.0-40.0) L 12/19/16 05:00 Eosinophils % 0.2 % (0.0-6.0) 12/19/16 05:00 Basophils % 0.1 % (0.0-2.0) 12/19/16 05:00 Neutrophils # 3.2 X 10^3uL (2.6-6.7) 12/19/16 05:00 Lymphocytes # 0.7 X 10^3uL (0.8-3.8) L 12/19/16 05:00 Monocytes 18.9 % (2.0-10.0) H 12/19/16 05:00 Monocytes # 0.9 X 10^3uL (0.2-1.0) 12/19/16 05:00 Eosinophils # 0.0 X 10^3uL (0.0-0.4) 12/19/16 05:00 Basophils # 0.0 X 10^3uL (0.0-0.1) 12/19/16 05:00 Sodium 133 mmol/L (137-145) L 12/21/16 06:15 Potassium 4.6 mmol/L (3.5-5.1) 12/21/16 06:15 Chloride 103 mmol/L (98-107) 12/21/16 06:15 Carbon Dioxide 22 mmol/L (22-30) 12/21/16 06:15 BUN 19 mg/dL (9-20) 12/21/16 06:15 Creatinine 1.0 mg/dL (0.7-1.3) 12/21/16 06:15 GFR Calculation > 60 mL/min 12/21/16 06:15 Glucose 77 mg/dL (70-100) 12/21/16 06:15 Lactic Acid 0.8 mmol/L (0.7-2.1) 12/19/16 05:27 Calcium 7.6 mg/dL (8.4-10.2) L 12/21/16 06:15 Magnesium 2.4 mg/dL (1.6-2.3) H 12/21/16 06:15 Total Bilirubin 1.0 mg/dL (0.2-1.3) 12/20/16 05:15 Direct Bilirubin 0.6 mg/dL (0.0-0.4) H 12/19/16 05:00 AST 22 U/L (17-59) 12/20/16 05:15 ALT 34 U/L (21-72) 12/20/16 05:15 Alkaline Phosphatase 55 U/L (38-126) 12/20/16 05:15 Total Protein 5.7 g/dL (6.3-8.2) L 12/20/16 05:15 Albumin 3.3 g/dL (3.5-5.0) L 12/20/16 05:15 Albumin/Globulin Ratio 1.4 12/20/16 05:15 Lipase 49 U/L (23-300) 12/18/16 07:00 Quality Questions - VTE Prophylaxis Assessment VTE Present on Admission?: Yes VTE Risk Level: Low Risk
[2016-12-21] MEDS: NORMAL SALINE 1,000 ML IV SCH ×3 (10:39→23:31)
[2016-12-21] MEDS: ONDANSETRON HCL 4 MG/2 ML VIAL IV PRN (22:54)
[2016-12-22] MEDS: NORMAL SALINE 1,000 ML IV SCH ×2 (05:37→12:45)
--- NOTE | 2016-12-22 11:07 | PROGRESS NOTE:General Surgery ---
Assessment and Plan - Date of Encounter Date of Encounter: 12/22/16 (1) Small bowel obstruction Status: Acute Assessment and plan: Resolving partial bowel obstruction. Continues to have moderate volume watery bowel movements. Tolerating liquids, although some transient nausea. PLAN: Will try Reglan to augment bowel function and promote gastric emptying. Continue to clamp NG, possible removal when nausea resolves. Current Visit: Yes - Time Spent With Patient Total time spent with greater than 50% in coordination of care (as documented) at patient's floor/unit and/or counseling patient: SILVIO: Gen Surg PN Subjective Patient reports: afebrile, bowel movement (4-5 loose bowel movements), diarrhea , feels better, nausea, pain is less, tolerating liquids well, no fever, no flatus, no vomiting (Some mild nausea last evening) SILVIO: Gen Surgery PN Obj Exam - Latest Vital Signs and I&O Latest Vital Signs/I&O: Vital Signs Temp 37.6 C 12/22/16 07:00 Pulse 76 12/22/16 07:00 Resp 18 12/22/16 09:00 BP 130/70 12/22/16 07:00 Pulse Ox 92 12/22/16 10:00 Intake & Output 12/21/16 12/22/16 12/22/16 17:59 05:59 17:59 Intake Total 2330 480 Output Total 400 2925 675 Balance -400 -595 -195 Intake: IV 1450 LEFT FOREARM 1450 Oral 880 480 Output: Gastric Drainage 400 1575 675 Left Nare 400 400 675 Urine 1350 Other: Urine Appearance Clear Clear Clear Urine Color Yellow Yellow Yellow Stool Size Moderate Moderate Moderate Stool Characteristics Soft Liquid Liquid Liquid Brown Brown Brown Voiding Method Toilet Toilet Toilet # Voids 1 # Bowel Movements 1 - Exam Respiratory exam: clear to auscultation Abdomen exam: bowel sounds (hypoactive), distended (less distended), other (no rigidity or guarding.) - Lab Labs: Laboratory Last Values WBC 4.9 X 10^3uL (3.9-10.7) 12/21/16 06:15 RBC 4.05 X 10^6uL (4.20-6.10) L 12/21/16 06:15 Hgb 12.9 g/dL (14.0-18.0) L 12/21/16 06:15 Hct 39.6 % (42.0-54.0) L 12/21/16 06:15 MCV 97.6 fL (84.0-102.0) 12/21/16 06:15 MCH 31.7 pg (29.0-35.0) 12/21/16 06:15 MCHC 32.5 g/dL (32.0-36.0) 12/21/16 06:15 RDW 12.4 % (11.5-14.5) 12/21/16 06:15 Plt Count 189 X 10^3uL (130-440) 12/21/16 06:15 MPV 8.5 fL (7.4-10.4) 12/21/16 06:15 Neutrophils % 66.7 % (54.0-75.0) 12/19/16 05:00 Lymphocytes % 14.1 % (20.0-40.0) L 12/19/16 05:00 Eosinophils % 0.2 % (0.0-6.0) 12/19/16 05:00 Basophils % 0.1 % (0.0-2.0) 12/19/16 05:00 Neutrophils # 3.2 X 10^3uL (2.6-6.7) 12/19/16 05:00 Lymphocytes # 0.7 X 10^3uL (0.8-3.8) L 12/19/16 05:00 Monocytes 18.9 % (2.0-10.0) H 12/19/16 05:00 Monocytes # 0.9 X 10^3uL (0.2-1.0) 12/19/16 05:00 Eosinophils # 0.0 X 10^3uL (0.0-0.4) 12/19/16 05:00 Basophils # 0.0 X 10^3uL (0.0-0.1) 12/19/16 05:00 Sodium 133 mmol/L (137-145) L 12/21/16 06:15 Potassium 4.6 mmol/L (3.5-5.1) 12/21/16 06:15 Chloride 103 mmol/L (98-107) 12/21/16 06:15 Carbon Dioxide 22 mmol/L (22-30) 12/21/16 06:15 BUN 19 mg/dL (9-20) 12/21/16 06:15 Creatinine 1.0 mg/dL (0.7-1.3) 12/21/16 06:15 GFR Calculation > 60 mL/min 12/21/16 06:15 Glucose 77 mg/dL (70-100) 12/21/16 06:15 Lactic Acid 0.8 mmol/L (0.7-2.1) 12/19/16 05:27 Calcium 7.6 mg/dL (8.4-10.2) L 12/21/16 06:15 Magnesium 2.4 mg/dL (1.6-2.3) H 12/21/16 06:15 Total Bilirubin 1.0 mg/dL (0.2-1.3) 12/20/16 05:15 Direct Bilirubin 0.6 mg/dL (0.0-0.4) H 12/19/16 05:00 AST 22 U/L (17-59) 12/20/16 05:15 ALT 34 U/L (21-72) 12/20/16 05:15 Alkaline Phosphatase 55 U/L (38-126) 12/20/16 05:15 Total Protein 5.7 g/dL (6.3-8.2) L 12/20/16 05:15 Albumin 3.3 g/dL (3.5-5.0) L 12/20/16 05:15 Albumin/Globulin Ratio 1.4 12/20/16 05:15 Lipase 49 U/L (23-300) 12/18/16 07:00 Quality Questions - VTE Prophylaxis Assessment VTE Present on Admission?: Yes VTE Risk Level: Very Low Risk
[2016-12-22] MEDS: METOCLOPRAMIDE HCL 10 MG/2 ML VIAL IV PRN ×3 (11:56→23:50)
[2016-12-22] MEDS: POLYETHYLENE GLYCOL 3350 17 GM POWD.PACK PO SCH (11:56)
[2016-12-22] MEDS: ONDANSETRON HCL 4 MG/2 ML VIAL IV PRN (13:44)
[2016-12-22 23:50] VITALS: O2SAT 92
[2016-12-23] MEDS: NORMAL SALINE 1,000 ML IV SCH (01:45)
[2016-12-23] MEDS: POLYETHYLENE GLYCOL 3350 17 GM POWD.PACK PO SCH ×2 (01:49→09:59)
[2016-12-23] MEDS: METOCLOPRAMIDE HCL 10 MG/2 ML VIAL IV PRN (06:14)
[2016-12-23 06:37] VITALS: BP 116/71; PULSE 79; RESP 20; TEMP 99.4
--- NOTE | 2016-12-23 09:08 | PROGRESS NOTE:General Surgery ---
Assessment and Plan - Date of Encounter Date of Encounter: 12/23/16 (1) Small bowel obstruction Status: Acute Assessment and plan: It appeared that he was improved so he was started on clear liquids which he tolerated. Last night was not having pain but was noted to be distended and NG put out about 4300ml of output. As he is not progressing will arrange transfer for possible surgery. Current Visit: Yes - Time Spent With Patient Total time spent with greater than 50% in coordination of care (as documented) at patient's floor/unit and/or counseling patient: SILVIO: Gen Surg PN Subjective Patient reports: afebrile, bowel movement (4-5 loose bowel movements), diarrhea , tolerating liquids well (starting clear liquid diet yesterday. Had about 700 in but put out 4300 from his NGT.), no fever, no flatus, no vomiting (Some mild nausea last evening) SILVIO: Gen Surgery PN Obj Exam - Latest Vital Signs and I&O Latest Vital Signs/I&O: Vital Signs Temp 37.4 C 12/23/16 06:36 Pulse 79 12/23/16 06:36 Resp 20 12/23/16 06:36 BP 116/71 12/23/16 06:36 Pulse Ox 92 12/23/16 06:36 Intake & Output 12/22/16 12/23/16 12/23/16 17:59 05:59 17:59 Intake Total 2950 2256 Output Total 1974 2370 650 Balance 975 -2370 1606 Intake: IV 1250 1981 LEFT FOREARM 1250 1981 Oral 1700 275 Output: Gastric Drainage 1974 2370 650 Left Nare 1375 2370 650 Urine 0 Other: Urine Appearance Clear Urine Color Yellow Stool Size Moderate Stool Characteristics Liquid Brown Voiding Method Toilet Toilet # Voids 3 0 # Bowel Movements 0 0 - Exam General physical exam: no distress Respiratory exam: clear to auscultation Abdomen exam: bowel sounds (hypoactive), distended (more distended), other (no rigidity or guarding.) - Lab Labs: Laboratory Last Values WBC 4.9 X 10^3uL (3.9-10.7) 12/21/16 06:15 RBC 4.05 X 10^6uL (4.20-6.10) L 12/21/16 06:15 Hgb 12.9 g/dL (14.0-18.0) L 12/21/16 06:15 Hct 39.6 % (42.0-54.0) L 12/21/16 06:15 MCV 97.6 fL (84.0-102.0) 12/21/16 06:15 MCH 31.7 pg (29.0-35.0) 12/21/16 06:15 MCHC 32.5 g/dL (32.0-36.0) 12/21/16 06:15 RDW 12.4 % (11.5-14.5) 12/21/16 06:15 Plt Count 189 X 10^3uL (130-440) 12/21/16 06:15 MPV 8.5 fL (7.4-10.4) 12/21/16 06:15 Neutrophils % 66.7 % (54.0-75.0) 12/19/16 05:00 Lymphocytes % 14.1 % (20.0-40.0) L 12/19/16 05:00 Eosinophils % 0.2 % (0.0-6.0) 12/19/16 05:00 Basophils % 0.1 % (0.0-2.0) 12/19/16 05:00 Neutrophils # 3.2 X 10^3uL (2.6-6.7) 12/19/16 05:00 Lymphocytes # 0.7 X 10^3uL (0.8-3.8) L 12/19/16 05:00 Monocytes 18.9 % (2.0-10.0) H 12/19/16 05:00 Monocytes # 0.9 X 10^3uL (0.2-1.0) 12/19/16 05:00 Eosinophils # 0.0 X 10^3uL (0.0-0.4) 12/19/16 05:00 Basophils # 0.0 X 10^3uL (0.0-0.1) 12/19/16 05:00 Sodium 133 mmol/L (137-145) L 12/21/16 06:15 Potassium 4.6 mmol/L (3.5-5.1) 12/21/16 06:15 Chloride 103 mmol/L (98-107) 12/21/16 06:15 Carbon Dioxide 22 mmol/L (22-30) 12/21/16 06:15 BUN 19 mg/dL (9-20) 12/21/16 06:15 Creatinine 1.0 mg/dL (0.7-1.3) 12/21/16 06:15 GFR Calculation > 60 mL/min 12/21/16 06:15 Glucose 77 mg/dL (70-100) 12/21/16 06:15 Lactic Acid 0.8 mmol/L (0.7-2.1) 12/19/16 05:27 Calcium 7.6 mg/dL (8.4-10.2) L 12/21/16 06:15 Magnesium 2.4 mg/dL (1.6-2.3) H 12/21/16 06:15 Total Bilirubin 1.0 mg/dL (0.2-1.3) 12/20/16 05:15 Direct Bilirubin 0.6 mg/dL (0.0-0.4) H 12/19/16 05:00 AST 22 U/L (17-59) 12/20/16 05:15 ALT 34 U/L (21-72) 12/20/16 05:15 Alkaline Phosphatase 55 U/L (38-126) 12/20/16 05:15 Total Protein 5.7 g/dL (6.3-8.2) L 12/20/16 05:15 Albumin 3.3 g/dL (3.5-5.0) L 12/20/16 05:15 Albumin/Globulin Ratio 1.4 12/20/16 05:15 Lipase 49 U/L (23-300) 12/18/16 07:00
--- NOTE | 2016-12-23 09:14 | DC SUMMARY: Gen Surgery Note ---
Discharge Summary: Surg/OB Provider: Date of Admission: 12/18/16 Admitting Provider: GILDA BEDOLLA MD Attending Provider: GILDA BEDOLLA MD Discharging Provider: GILDA BEDOLLA MD Primary Care Provider: Discharge Date: 12/23/16 - Diagnosis (1) Small bowel obstruction Status: Acute Hospital Course: Mr. CHOU is a 71 year old male admitted to [facility] on 12/18/16 with symptoms of a bowel obstruction. Nasogastric tube was placed. He initially slowly improved. A Gastrografin study was done on 12/19/16 and showed slow progression of contrast into the colon at about 22 hours. He was still distended so nasogastric continued. On 12/22/16 his nasogastric tube was clamped and he was started on a clear liquid diet which he tolerated well. Last evening he was noted to be more distended and the NG tube was placed to suction which put out approximately 4300 mL's. She had taken in about 700 mL. This morning he is more distended he has no tenderness he has minimal bowel sounds. His labs are pending. He is not making progress and has not eaten since 12/15/16. Arrangements have been made to transfer him to [facility] for consideration of exploration if he does not improve. Discharge Disposition: [facility] Gen Surgery: Discharge Exam - Latest Vital Signs and I&O Latest Vital Signs/I&O: Vital Signs Temp 37.4 C 12/23/16 06:36 Pulse 79 12/23/16 06:36 Resp 20 12/23/16 06:36 BP 116/71 12/23/16 06:36 Pulse Ox 92 12/23/16 06:36 Intake & Output 12/22/16 12/23/16 12/23/16 17:59 05:59 17:59 Intake Total 29496 Output Total 1974 2370 650 Balance 975 -2370 1606 Intake: IV 1250 1981 LEFT FOREARM 1250 1980 Oral 1700 275 Output: Gastric Drainage 1974 2370 650 Left Nare 1375 2370 650 Urine 0 Other: Urine Appearance Clear Urine Color Yellow Stool Size Moderate Stool Characteristics Liquid Brown Voiding Method Toilet Toilet # Voids 3 0 # Bowel Movements 0 0 - Exam General physical exam: no distress Respiratory exam: clear to auscultation Abdomen exam: bowel sounds (hypoactive), distended (more distended), surgical scars (in the midline and in the periumbilical region. He also has a suprapubic incision.), other (no rigidity or guarding.) Discharge Summary Data - Medication History Medication History: Home Medications Other [No Known Home Medications] 12/18/16 Inpatient Medications 12/18/16 12:00 Phenol Grasston [Chloraseptic Grasston] 1 spray MUCOUS MEM PRN 12/19/16 17:29 Zolpidem Tartrate [Ambien] 5 - 10 mg PO HS PRN 12/19/16 17:30 HYDROmorphone HCL [Dilaudid] 2 mg PO Q4H PRN 12/19/16 21:00 Polyethylene Glycol 3350 [miraLAX] 17 gm PO BID 12/20/16 08:57 Acetaminophen [Ofirmev Inj] 1,000 mg IV Q6H PRN 12/21/16 11:00 Normal Saline [Sodium Chloride 0.9% 1000 ml] 1,000 ml IV CONT 12/22/16 11:00 Metoclopramide HCl [Reglan] 10 mg IV Q6H PRN Procedures and tests throughout hospitalization: Completed Lab Orders 12/19/16 05:27 LACTATE [CHEM] Routine 12/20/16 05:15 CBC WITHOUT A DIFFERENTIAL [HEM] AMDRAW MAGNESIUM [CHEM] AMDRAW cmp [COMPREHENSIVE METABOLIC PANEL] [CHEM] AMDRAW 12/21/16 06:15 BMP [BASIC METABOLIC PANEL] [CHEM] AMDRAW CBC WITHOUT A DIFFERENTIAL [HEM] AMDRAW MAGNESIUM [CHEM] AMDRAW Completed Imaging Orders 12/19/16 09:06 SMALL INT; MUTI FILMS [id number] [RAD] Routine Pending Orders 12/18/16 09:45 SCD's [Sequential Compression Device] WHILE IN BED 12/18/16 12:00 Phenol Grasston [Chloraseptic Grasston] 1 spray MUCOUS MEM PRN 12/19/16 17:29 Zolpidem Tartrate [Ambien] 5 - 10 mg PO HS PRN 12/19/16 17:30 HYDROmorphone HCL [Dilaudid] 2 mg PO Q4H PRN 12/19/16 17:35 NPO [Hard Candy] . NPO [Sips and Chips] . 12/19/16 21:00 Polyethylene Glycol 3350 [miraLAX] 17 gm PO BID 12/20/16 08:57 Acetaminophen [Ofirmev Inj] 1,000 mg IV Q6H PRN 12/21/16 10:35 Clamp Nasogastric Tube UD 12/21/16 10:39 Advance Diet to Clear Liquid.. . 12/21/16 11:00 Normal Saline [Sodium Chloride 0.9% 1000 ml] 1,000 ml IV CONT 12/21/16 Dinner Clear Liquid [DIET] 12/22/16 11:00 Metoclopramide HCl [Reglan] 10 mg IV Q6H PRN 12/23/16 08:46 CBC WITHOUT A DIFFERENTIAL [HEM] Routine 12/23/16 08:47 cmp [COMPREHENSIVE METABOLIC PANEL] [CHEM] Routine mg [MAGNESIUM] [CHEM] Routine 12/23/16 08:48 ABDOMEN; SINGLE VIEW [id number] [RAD] Routine
[2016-12-23 09:27] LABS: HEMATOCRIT 40.9 % (42.0-54.0); HEMOGLOBIN 14.1 g/dL (14.0-18.0); MEAN CELL VOLUME 96.3 fL (84.0-102.0); MEAN CORPUS. HGB CONCENTRATION 34.4 g/dL (32.0-36.0); MEAN CORPUSCULAR HEMOGLOBIN 33.1 pg (29.0-35.0); MEAN PLATELET VOLUME 8.3 fL (7.4-10.4); RED BLOOD COUNT 4.24 X 10^6uL (4.20-6.10); RED CELL DISTRIBUTION WIDTH 12.3 % (11.5-14.5); WHITE BLOOD COUNT 9.5 X 10^3uL (3.9-10.7)
[2016-12-23 10:02] LABS: A/G RATIO 1.3; ALBUMIN 3.6 g/dL (3.5-5.0); ALKALINE PHOSPHATASE 70 U/L (38-126); ALT 66 U/L (21-72); AST 48 U/L (17-59); BILIRUBIN, TOTAL 0.8 mg/dL (0.2-1.3); BLOOD UREA NITROGEN 14 mg/dL (9-20); CALCIUM 8.1 mg/dL (8.4-10.2); CHLORIDE 102 mmol/L (98-107); CREATININE 1.2 mg/dL (0.7-1.3); EST GLOMERULAR FILTRATION RATE > 60 mL/min; GLUCOSE 119 mg/dL (70-100); MAGNESIUM 2.3 mg/dL (1.6-2.3); POTASSIUM 3.5 mmol/L (3.5-5.1); SODIUM 138 mmol/L (137-145); TOTAL PROTEIN 6.4 g/dL (6.3-8.2)
--- NOTE | 2016-12-23 12:54 | RADIOLOGY REPORT ---
HISTORY: Abdominal pain. Small bowel obstruction. COMPARISON: December 18, 2016 FINDINGS: Single frontal view of the abdomen was obtained. There is been a degree of interval improvement of th e small bowel distention. There are persistent distended small bowel loops in the epigastric region. The distal small bowel loops are decompressed. Some gas is visualized within the ascending and descen ding colon. No free air or pneumatosis. Postoperative changes of previous bowel surgery noted in the right mid abdomen. Multiple surgical clips are again noted in the right paravertebral region from T12 to L2. Bony structures appear stable in configuration with mild dextro rotoscoliosis. IMPRESSION: 1. Mixed bowel gas pattern with interval improvement in the small bowel distention. There are persist ent dilated small bowel loops in the epigastric region. There is been interval decompression of the d istended distal small bowel loops Final Electronic Signature: This report was electronically signed by Freddy Hills MD on 12/23/2016 12 :51 PM. [facility] /
[2016-12-23] MEDS ORDERED: ONDANSETRON HCL 4 MG/2 ML VIAL ONE (14:23)
[2016-12-23] MEDS ORDERED: FENTANYL 250 MCG/5 ML VIAL ONE (14:24)
--- NOTE | 2016-12-27 11:05 | HISTORY & PHYSICAL ---
istory of Present Illness (Fritz Chavez M.D.; 12/18/2016 10:34 AM) Patient words: He had eaten a hamburger on Friday and following that began to have symptoms. Since that time he has passed very little flatus or stool. He has noted progressive abdominal distention. He has diffuse abdominal pain but notes it's more severe in the left lower quadrant region. He has never had a small bowel obstruction in the past. He had been feeling fine up to this point. He denies any fevers but has noted chills. Last night when he was going to the restroom he had what sounded to be a vagal episode. He felt lightheaded and did bump his lower lip. He says he was so fatigued he bowls sleep on the floor but was sure he did not bump his head or get knocked out. He did lose control of his bladder and woke up in a pool of urine. The patient is a 71 year old male who presents with abdominal pain. The onset of the pain has been gradual and has been occurring in a persistent pattern for 3 days. The course has been increasing. The pain is described as a severe pressure sensation and fullness. The pain is described as being located in the entire abdomen and does not radiate. There are no aggravating factors. The pain is not relieved by anything. The symptoms have been associated with bloating, nausea, vomiting and other (chills), while the symptoms have not been associated with diarrhea, dysuria or fever. There is a medical history of laparoscopy, laparotomy, hernia repair, colon cancer and renal cancer. Previous evaluations have included CT scan. Problem List/Past Medical (Fritz Chavez M.D.; 12/18/2016 10:34 AM) Skin cancer (C44.90) Followed by dermatology. Prior history of nonmelanoma skin cancer times multiple. He just retreated with 5-FU topically, and he is following regularly for nonhealing lesions. 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 No evidence of recurrence, and he continues to follow with urology and oncology. Undergoing cystoscopy, laboratory tests serially. No longer following FISH analysis as this was negative even when his cancer was present. Howell cardiac risk <10% in next 10 years (Z91.89) Statin therapy not indicated. Could consider low-dose aspirin, but he would like to hold off considering chronic kidney disease and prior nephrectomy. Chronic obstructive pulmonary disease with bronchospasm (J44.9) Asymptomatic. No smoking history. However, with abnormal lung examination intermittently. Spirometry showing evidence of obstructive changes. PFTs corroborating this and showing evidence of a bronchodilator response. Likely has a component of COPD with some airway reactivity. We have previously discussed options including a trial of bronchodilators plus or minus an inhaled steroid. He would like to hold off for now. We did discuss the fact that he may be at increased risk for pulmonary infections, and he will have a low threshold for evaluation, particularly considering his cancer history. He is up-to-date on vaccines. Headache (784.0) (R51) Chronic, recurrent Abnormal chest sounds (786.7) (R09.89) Bibasilar rales noted again today. Asymptomatic. Continues to run regularly without difficulty. See discussion above. He would like to hold off on further workup and treatment for now. Chronic kidney disease, stage III (moderate) (N18.3) Cr. 1.4-1.7. Most recent GFR estimate in the 40s. No significant proteinuria. Follow periodically. Consideration for nephrology consultation if creatinine above 2.0. He understands this plan and is in agreement. He is focusing on good hydration. He is avoiding NSAIDs. Abnormal TSH (R79.89) Mildly elevated TSH previously. He would like to follow periodically and treat only if TSH goes over 10 or he becomes symptomatic. Clinically stable. Kidney Cancer, not involving renal pelvis (Z85.528)(Z90.5) 1998 Right sided. Previous involvement. Now status post right unilateral nephrectomy. With recurrence in the renal pelvis of the remaining kidney as above. 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 Last glucose level was normal. Weight is healthy. Exercising regularly. Continue to work on good dietary choices. 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 Patient with second recurrence of kidney cancer in his one remaining kidney. Involving the renal pelvis. Has now undergone experimental therapy with infusion of BCG/interferon into the renal pelvis. Symptomatically, he is doing well since directed radiation therapy and subsequent ureteroscopy (with local treatment of residual tumor). No new recommendations at this time. Will continue to follow with his specialists. History of colon cancer (Z85.038)03/2010 Cecal cancer. Stage IIA (T3, N0, M0). Now status post resection. Also status post oral chemotherapy with Xeloda. Most recent colonoscopy negative in 2013. The plan at this point is to recheck every 3 years with a colonoscopy (although most recent colonoscopy report recommends a 4 year recheck). He plans to discuss this further with GI. Most recent CT scan of abdomen and pelvis was negative. Iron deficiency anemia has resolved. No new recommendations at this time. Will check a CEA level. He understands the limited nature of this test for follow-up of colon cancer. Nonspecific abnormal findings on radiological and examination of lung field ( 793.1)03/2011 Right middle lobe. A 5 mm nodule noted on recent CT scan of the thorax. Oncology will be performing a six-month followup CT. With pulmonary rales at the right base, will check oxygen and spirometry today. Low threshold for PFTs if abnormal. May need to consider high-resolution CT scan if abnormal. Prostate cancer (Z85.46)06/2013 Now status post radical prostatectomy. No evidence of recurrence with his most recent PSA being undetectable. Following with urology and oncology. Allergies (Fritz Chavez M.D.; 12/18/2016 10:34 AM) NSAIDs Avoiding status post nephrectomy. Family History (Fritz Chavez M.D.; 12/18/2016 10:34 AM) Colon Cancer First Degree Relatives, Son, Father, Paternal Grandfather. (Son at age 28; positive for a genetic mutation--Vuong's Syndrome.) Prostate Cancer First Degree Relatives, Father. Negative Family History of Negative Family History Of. Coronary artery disease , thyroid disease, or diabetes. Social History (Fritz Chavez M.D.; 12/18/2016 10:34 AM) Residency Status Full-time [place] resident. Tobacco Use Never smoker. 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 PHI Release details Signed form for authorization. Permission to share health information with: Harriet Hdz (spouse). Exercise Moderate. running, hiking Alcohol use Drinks Rarely. Nutrition Well-balanced diet. high fruits and veggies, rare red meat consumption, low meat in general. Past Surgical History (Fritz Chavez M.D.; 12/18/2016 10:34 AM) Tonsillectomy and [id number] Hernia [id number] Bilateral Inguinal [id number] Right Hemicolectomy; Right04/2010 For adenocarcinoma of the cecum. Prostatectomy; Vnzmomlyh93/2013 Radical prostatectomy. Diagnostic Studies History (Fritz Chavez M.D.; 12/18/2016 10:34 AM) Carotid US Date: 10/2009, Normal. EGD03/2010 Bmrjozbwqkr60/[address] Schreiber in [place] CT A/P003/[address] Scan of Chest03/[address] Chest/Abd/Pelv03/2013 No metastatic disease. EGD1 Health Maintenance History (Fritz Chavez M.D.; 12/18/2016 10:34 AM) Colonoscopy, Mnuhiarew74/2010 New dx colon cancer. Other Problems (Fritz Chavez M.D.; 12/18/2016 10:34 AM) Encounter for immunization (Z23) Health education/counseling (Z71.89) External thrombosed hemorrhoids (455.4) Need for prophylactic vaccination against Streptococcus pneumoniae (pneumococcus ) (V03.82) Acute upper respiratory infection (465.9) (J06.9) Dizziness (780.4) (R42) Need for prophylactic vaccination and inoculation against other viral diseases ( V04.89) (Z23) Need for prophylactic vaccination and inoculation against influenza (V04.81) Health education/counseling (Z71.9) Chest pain (786.50) (R07.9) No history of coronary artery disease. However, male patient, over the age of 45, and with intermittent chest pain. EKG and labs negative and ER visit last month, and no recurrence of chest pain since then. He continues to exercise 3 times a week. Most likely represents musculoskeletal pain. However, with last stress test being a few years ago, I recommended a repeat stress echo versus cardiology consultation. He will consider. Considering mild renal insufficiency and previous nephrectomy, will hold off on aspirin for now. Review of Systems (Fritz Chavez M.D.; 12/18/2016 10:33 AM) General Present- Chills. Not Present- Feeling well, Fever and Night Sweats. Skin Present- Skin Cancer. Respiratory Not Present- Shortness of Breath. Cardiovascular Not Present- Heart Problems. Gastrointestinal Present- Bloating, Constipation, GI Problems and Hemorrhoids. Not Present- Diarrhea. Male Genitourinary Not Present- Dysuria. Musculoskeletal Not Present- Arthralgia. Neurological Not Present- Neurological Problems, Seizures and Stroke. Endocrine Not Present- Diabetes and Thyroid Problems. Hematology Not Present- Anemia and Blood Clots. Vitals (Fritz Chavez M.D.; 12/18/2016 10:35 AM) 12/18/2016 10:34 AM Pain Level: 4/10 Temp.: 37F Pulse: 61 (Regular) Resp.: 18 (Unlabored) Peak Flow: 2L/ min P.OX: 95% (Room air) BP: 122/79 (Sitting, Left Arm, Standard) Physical Exam (Fritz Chavez M.D.; 12/18/2016 10:38 AM) General Mental Status-Alert. General Appearance-Not Anxious, Not Toxic. Orientation-Oriented X3. Integumentary General Appearance-normal. Chest and Lung Exam Chest and lung exam reveals -Clear. Cardiovascular Cardiovascular examination reveals -RRR, No murmurs present. Abdomen Inspection Incisional scars - Laparoscopy scars, Laparotomy scar and midline. Contour - Generalized moderate distention. Palpation/Percussion Palpation and Percussion of the abdomen reveal - No Rebound tenderness and No Rigidity (guarding). Tenderness - Generalized. Auscultation Bowel sounds decreased - Generalized. Male Genitourinary Evaluation of genitourinary system reveals-No Bilat descended testicles without masses, No Hernias. Rectal - Did not examine. Peripheral Vascular Lower Extremity Palpation - Edema - Bilateral - No edema. Assessment & Plan (Fritz Chavez M.D.; 12/18/2016 10:39 AM) Small bowel obstruction (K56.69) Note:He has findings on CT scan of a small bowel obstruction. There appears to be a transition in the distal small bowel near his ileocolic anastomosis. He does not have an acute abdomen so he is a good candidate for conservative treatment. He has an NG tube placed and we will evaluate that with complaint fell and make sure it is working correctly. We'll continue hydration and recheck his labs in the morning. We'll consider a Gastrografin study tomorrow. Signed electronically by Fritz Chavez M.D. (12/18/2016 10:41 AM) [place]
== END 2016-12-23 09:13 | disposition short-term general hospital (02) | DRG 390 ==
LOC: ER 06:39 → OBSVTOIN 09:44 → INTOOBSV 09:44 → IN 09:44
PROVIDERS: ADMIT Surgery; ATTEND Surgery
DX: K56.69 Other intestinal obstruction (principal); R55 Syncope and collapse; C44.90 Unspecified malignant neoplasm of skin, unspecified; Z85.51 Personal history of malignant neoplasm of bladder; Z91.89 Other specified personal risk factors, not elsewhere classified; J44.9 Chronic obstructive pulmonary disease, unspecified; R51 Headache; R09.89 Other specified symptoms and signs involving the circulatory and respiratory systems; N18.3 Chronic kidney disease, stage 3 (moderate); R79.89 Other specified abnormal findings of blood chemistry; Z85.528 Personal history of other malignant neoplasm of kidney; E74.9 Disorder of carbohydrate metabolism, unspecified; Z90.5 Acquired absence of kidney; Z85.038 Personal history of other malignant neoplasm of large intestine; Z85.46 Personal history of malignant neoplasm of prostate; Z74.3 Need for continuous supervision
CPT/HCPCS: 36415; 74000; 74177; 74250; 80048; 80053; 80076; 83605; 83690; 83735; 85025; 85027; 93005; 96361; 96374; 96375; 99285; A0425; A0427; J1170; J1650; J2250; J2405; J2765; J7030; J7050; Q5005